=== PATIENT | male | born 1995 | race Hispanic/Latino ===

== ENCOUNTER 2016-09-22 08:39 | Emergency (ER) | payer OTHER ==
[2016-09-22 08:40] VITALS: BMI 33.2
[2016-09-22] MEDS ORDERED: Sodium Chloride 0.9% 1,000 ML IV STA ×2 (09:30→10:18)
[2016-09-22 10:01] LABS: ADD MANUAL DIFF? NO
[2016-09-22 10:07] LABS: VENOUS BLOOD GAS BASE EXCESS 0.8 mmol/L (0.0-2.0); VENOUS BLOOD PH 7.31 (7.32-7.43)
[2016-09-22 10:10] LABS: BASO # 0.03 K/mm3 (0.0-2.0); BASO % 0.4 % (0.0-3.0); EOS # 0.2 (0.0-0.7); EOS % 2.6 % (1.5-5.0); GRAN # 6.36 (1.4-6.5); GRAN % 79.6 % (50.0-68.0); LYMPH # 0.9 (1.2-3.4); LYMPH % 10.9 % (22.0-35.0); MEAN CELL VOLUME 87.1 fL (80.0-105.0); MEAN CORPUSCULAR HEMOGLOBIN 30.1 pg (25.0-35.0); MEAN CORPUSCULAR HGB CONC 34.6 g/dl (31.0-37.0); MEAN PLATELET VOLUME 9.1 fl (7.0-11.0); MONO # 0.5 (0.1-0.6); MONO % 6.5 % (1.0-6.0); PLATELET COUNT 197 10^3/uL (120.0-450.0); RED CELL DISTRIBUTION WIDTH 11.9 % (11.5-14.5)
[2016-09-22 10:17] LABS: ALB/GLOB RATIO 1.3 (1.1-1.8); ALKALINE PHOSPHATASE 62 U/L (38-133); ALT/SGPT 48 U/L (7-56); AMYLASE 100 U/L (35-125); AST/SGOT 71 U/L (15-59); BILIRUBIN,TOTAL 1.5 mg/dL (0.2-1.3); BLOOD UREA NITROGEN 15 mg/dL (7-21); CALCIUM 9.5 mg/dL (8.4-10.5); CARBON DIOXIDE 28 mmol/L (21-33); CHLORIDE 99 mmol/L (98-107); GFR AFRICAN-AMERICAN > 60; GLUCOSE,RANDOM 100 mg/dL (70-110); LIPASE 86 U/L (23-300); POTASSIUM 4.4 mmol/L (3.6-5.0); SODIUM 140 mmol/L (132-148); TOTAL PROTEIN 8.5 g/dL (5.8-8.3)
--- NOTE | 2016-09-22 10:18 | RAD ---
HISTORY: chest pain COMPARISON: No prior. FINDINGS: LUNGS: No active pulmonary disease. PLEURA: No significant pleural effusion identified, no pneumothorax apparent. CARDIOVASCULAR: Normal. OSSEOUS STRUCTURES: No significant abnormalities. VISUALIZED UPPER ABDOMEN: Normal. OTHER FINDINGS: None. IMPRESSION: No active disease.
[2016-09-22 10:20] LABS: INR 1.04 (0.93-1.08); PARTIAL THROMBOPLASTIN TIME 27.5 Seconds (23.7-30.8)
[2016-09-22 10:27] LABS: TROPONIN I 0.02 ng/mL
--- NOTE | 2016-09-22 11:43 | ED PDOC ---
Arrival/HPI - General Chief Complaint: Abdominal Pain Time Seen by Provider: 09/22/16 09:05 Historian: Patient - History of Present Illness Narrative History of Present Illness (Text): 09/22/16 09:25 A 21 year old male presents to the emergency department complaining of nausea, vomiting and diarrhea since last night around 2200. Patient reports multiple episodes of non bloody, non bilious vomiting and non bloody, water diarrhea. He notes his last episode was at 0500 this morning. Patient notes associated abdominal pain which radiates up to the chest. He denies any fever, shortness of breath, or other complaints at this time. PMD: Dr. Thornton Time/Duration: Other (12-18 hours) Symptom Onset: Sudden Symptom Course: Unchanged Quality: Other Activities at Onset: Rest Context: Home Past Medical History - Provider Review Nursing Documentation Reviewed: Yes - Past History Past History: Unable to Obtain - Infectious Disease Hx of Infectious Diseases: None - Tetanus Immunization Tetanus Immunization: Unknown - Psychiatric Hx Substance Use: No - Past Surgical History Past Surgical History: Unable to Obtain - Surgical History Hx Tonsillectomy: Yes Family/Social History - Physician Review Nursing Documentation Reviewed: Yes Family/Social History: Unknown Family HX Smoking Status: Current Some Days Smoker Hx Alcohol Use: Yes Frequency of alcohol use: Socially Hx Substance Use: No Allergies/Home Meds Allergies/Adverse Reactions: Allergies No Known Allergies Allergy (Verified 09/22/16 08:57) Home Medications: Home Meds Medication Instructions Recorded Confirmed No Known Home Med 09/22/16 09/22/16 Review of Systems - Review of Systems Constitutional: absent: Fevers Eyes: absent: Vision Changes ENT: absent: Rhinorrhea Respiratory: absent: SOB, Cough Cardiovascular: Chest Pain Gastrointestinal: Abdominal Pain, Diarrhea, Nausea, Vomiting Genitourinary Male: absent: Dysuria Musculoskeletal: absent: Back Pain Skin: absent: Rash Neurological: absent: Headache Endocrine: absent: Polyuria Psychiatric: absent: Depression Physical Exam - Physical Exam Narrative Physical Exam (Text): Head: Atraumatic. Normocephalic. Eyes: PERRL. EOMI. Conjunctivae are not pale. ENT: Mucous membranes are moist and intact. Oropharynx is clear and symmetric. Neck: Supple. Full ROM. No JVD. No lymphadenopathy. Cardiovascular: Regular rate. Regular rhythm. No murmurs, rubs, or gallops. Distal pulses are 2+ and symmetric. Pulmonary/Chest: No evidence of respiratory distress. Clear to auscultation bilaterally. No wheezing, rales or rhonchi. Abdominal: Focal tenderness with palpation to the periumbilical region and right lower quadrant with rebound. No guarding or rigidity. No organomegaly. Good bowel sounds. Back: No CVA tenderness. Extremities: No edema. No cyanosis. No clubbing. Full range of motion in all extremities. No calf tenderness. Skin: Skin is warm and dry. No petechiae. No purpura. Neurological: Alert, awake, and oriented to person, place, time, and situation. Normal speech. Psychiatric: Good eye contact. Normal interaction, affect, and behavior. Vital Signs Reviewed: Yes Vital Signs Temp Pulse Resp BP Pulse Ox 09/22/16 18:09 97.9 F 61 18 123/63 100 09/22/16 16:22 61 14 117/57 L 98 09/22/16 13:36 62 18 131/70 98 09/22/16 08:53 98.3 F 88 18 160/85 H 98 Temperature: Afebrile Blood Pressure: Hypertensive Pulse: Regular Respiratory Rate: Normal Appearance: Positive for: Well-Appearing, Non-Toxic, Comfortable Pain Distress: None Mental Status: Positive for: Alert and Oriented X 3 Medical Decision Making ED Course and Treatment: 09/22/16 09:25 Impression: A 21 year old male with abdominal pain, nausea, vomiting and diarrhea. On examination patient is tenderness with palpation to the periumbilical and right lower quadrant with rebound. Differential Diagnosis include but are not limited to: gastritis vs. appendicitis vs. gastroenteritis. Plan: Will obtain EKG and chest x-ray and lab work to rule out cardiac cause. Will give Pepcid, zofran and IV Fluids for discomfort. Will obtain a Abdomen/ Pelvis CT with contrast to rule out appendicitis. Limitations of CT imaging and labs reviewed with patient and father. - Lab Interpretations I have reviewed the lab results: Yes - Medication Orders Current Medication Orders: Sodium Chloride (Sodium Chloride 0.9%) 1,000 mls @ 100 mls/hr IV .Q10H DERECK Last Admin: 09/22/16 13:33 Dose: 100 MLS/HR eMAR Start Stop Document 09/22/16 13:33 SRE (Rec: 09/22/16 13:33 SRE [id number]) Intravenous Solution Start Date 09/22/16 Start Time 13:25 Sodium Chloride (Sodium Chloride 0.9%) 1,000 mls @ 125 mls/hr IV .Q8H DERECK Last Admin: 09/22/16 17:24 Dose: 125 MLS/HR eMAR Start Stop Document 09/22/16 17:24 SRE (Rec: 09/22/16 17:25 SRE [id number]) Intravenous Solution Start Date 09/22/16 Start Time 17:24 End Date 09/23/16 End time 01:00 Total Infusion Time 456 Ondansetron HCl (Zofran Inj) 4 mg IVP Q4H PRN PRN Reason: Nausea/Vomiting Tramadol HCl (Ultram) 50 mg PO TID DERECK Discontinued Medications Famotidine (Pepcid) 20 mg IVP STAT STA Stop: 09/22/16 09:31 Last Admin: 09/22/16 10:26 Dose: 20 MG IVP Administration Document 09/22/16 10:26 SRE (Rec: 09/22/16 10:26 SRE [id number]) Charges for Administration # of IVP Administrations 1 Sodium Chloride (Sodium Chloride 0.9%) 1,000 mls @ 1,000 mls/hr IV .Q1H STA Stop: 09/22/16 10:29 Last Admin: 09/22/16 10:20 Dose: 1,000 MLS/HR eMAR Start Stop Document 09/22/16 10:20 SRE (Rec: 09/22/16 10:26 SRE [id number]) Intravenous Solution Start Date 09/22/16 Start Time 10:20 End Date 09/22/16 End time 11:20 Total Infusion Time 60 Sodium Chloride (Sodium Chloride 0.9%) 1,000 mls @ 1,000 mls/hr IV .Q1H STA Stop: 09/22/16 11:17 Last Admin: 09/22/16 10:54 Dose: 1,000 MLS/HR eMAR Start Stop Document 09/22/16 10:54 SRE (Rec: 09/22/16 10:55 SRE [id number]) Intravenous Solution Start Date 09/22/16 Start Time 10:55 End Date 09/22/16 End time 12:00 Total Infusion Time 65 Iohexol (Omnipaque 350 150 Ml) Confirm Administered Dose 150 ml .ROUTE .STK-MED ONE Stop: 09/22/16 10:25 Ondansetron HCl (Zofran Inj) 4 mg IVP ONCE ONE Stop: 09/22/16 09:31 Last Admin: 09/22/16 10:26 Dose: 4 MG IVP Administration Document 09/22/16 10:26 SRE (Rec: 09/22/16 10:26 SRE [id number]) Charges for Administration # of IVP Administrations 1 ED OBSERVATION Discharge: Yes Date of observation admission: 09/22/16 Time of observation admission: 09:25 - Observation admission statement Patient is being placed in observation because:: History of nausea and vomiting and diarrhea associated with abdominal pain. - Goals of Observation Goals of observation are:: IV fluids, serial exams, possible ct abdomen is persistent RLQ pain - Progress Note Progress Note: IV was established and fluids ordered. Labs reviewed in depth with the patient. I discussed with the patient the limitation in lab work in diagnosing appendicitis. 09/22/16 09:32 On reevaluation after fluids patient with persistent right lower quadrant abdominal pain. CT with contrast recommend. Risk of IV Contrast and indication of CT reviewed with the patient is depth. Patient is requesting, we call his PMD before obtaining the CT. I have discussed the history and examination with the patient PMD (Dr. Bhavik Thornton), who states he will communicate with the patient's father about indication for CT as well. Dr. Thornton is agreeable to the plan. 09/22/16 10:20 Chest X-ray: Creator : Levi Louis MD COMPARISON: No prior. FINDINGS: LUNGS: No active pulmonary disease. PLEURA: No significant pleural effusion identified, no pneumothorax apparent. CARDIOVASCULAR: Normal. OSSEOUS STRUCTURES: No significant abnormalities. VISUALIZED UPPER ABDOMEN: Normal. OTHER FINDINGS: None. IMPRESSION: No active disease. 09/22/16 12:40 Abdomen/Pelvis CT: Creator : Nate Santoyo MD COMPARISON: None. FINDINGS: LOWER THORAX: Unremarkable. LIVER: Unremarkable. No gross lesion or ductal dilatation. GALLBLADDER AND BILE DUCTS: Unremarkable. PANCREAS: Unremarkable. No gross lesion or ductal dilatation. SPLEEN: Unremarkable. ADRENALS: Unremarkable. No mass. KIDNEYS AND URETERS: Unremarkable. No hydronephrosis. No solid mass. VASCULATURE: Unremarkable. No aortic aneurysm. BOWEL: Unremarkable. No obstruction. No gross mural thickening. APPENDIX: Normal appendix. PERITONEUM: Unremarkable. No free fluid. No free air. LYMPH NODES: Unremarkable. No enlarged lymph nodes. BLADDER: Unremarkable. REPRODUCTIVE: Unremarkable. BONES: No acute fracture. OTHER FINDINGS: None. IMPRESSION: Unremarkable contrast enhanced CT of the abdomen and pelvis. Patient on reassessment has improved pain. I have discussed with him in length about abnormal lab tests including CPK in laymen's terms. IV fluids continued. Repeat CPK found to be persistently elevated, although patient denies any chest pain or shortness or breath. On musculoskeletal exam there is no focal muscle pain or erythema or edema. His nausea and vomiting and diarrhea have resolved. He is tolerating po. Patient's repeat CPK elevation was discussed with the patient and Dr. Tra Thornton. I have recommended to patient that he be admitted for evaluation of elevated CPK that is increasing, as well as differential diagnosis of this. He denies any chest pain, denies any excessive exertion or prolonged immoblization. Denies calf pain or swelling. He denies strenuous activity. Denies protein supplements or "muscle mass" supplements. He is urinating without difficulty. Patient and PMD initially agreeable to admission. I updated his father Agapito Downey, who is agreeable to plan. Subsequently patient and family communicated to me and PMD that he wishes to be discharged. Risks were discussed with patient in laymen's terms. He is comfortable, tolerating po, comfortable, and will be discharged as follow-up arranged with Dr. Thornton tomorrow morning. Risks of discharge and elevated CPK reviewed with patient and father, they express understanding. 09/22/16 18:10 - Scribe Statement The provider has reviewed the documentation as recorded by the Romeroibe Robbin Norman Provider Scribe Attestation: All medical record entries made by the Scribe were at my direction and personally dictated by me. I have reviewed the chart and agree that the record accurately reflects my personal performance of the history, physical exam, medical decision making, and the department course for this patient. I have also personally directed, reviewed, and agree with the discharge instructions and disposition. Disposition/Present on Arrival - Present on Arrival Any Indicators Present on Arrival: No History of DVT/PE: No History of Uncontrolled Diabetes: No Urinary Catheter: No History of Decub. Ulcer: No History Surgical Site Infection Following: None - Disposition Have Diagnosis and Disposition been Completed?: Yes Diagnosis: Gastroenteritis, Elevated creatine kinase level Disposition: HOME/ ROUTINE Disposition Time: 18:22 Patient Plan: Discharge Condition: GOOD
[2016-09-22 12:07] LABS: URINE BILIRUBIN NEGATIVE (NEGATIVE); URINE BLOOD NEGATIVE (NEGATIVE); URINE GLUCOSE (UA) NEGATIVE (NEGATIVE); URINE KETONE NEGATIVE (NEGATIVE); URINE LEUKOCYTE ESTERASE NEGATIVE Leu/uL (NEGATIVE); URINE PROTEIN NEGATIVE mg/dL (<30 mg/dL); URINE UROBILINOGEN 0.2 E.U./dL (<1 E.U./dL)
[2016-09-22 12:08] LABS: URINE APPEARANCE CLEAR (CLEAR); URINE COLOR YELLOW (YELLOW)
--- NOTE | 2016-09-22 12:37 | CT ---
PROCEDURE: CT Abdomen and Pelvis with contrast HISTORY: rlq abdominal pain COMPARISON: None. TECHNIQUE: Contrast dose: 150 cc of Omni 350 Radiation dose: Total exam DLP = 1007 mGy-cm. This CT exam was performed using one or more of the following dose reduction techniques: Automated exposure control, adjustment of the mA and/or kV according to patient size, and/or use of iterative reconstruction technique. FINDINGS: LOWER THORAX: Unremarkable. LIVER: Unremarkable. No gross lesion or ductal dilatation. GALLBLADDER AND BILE DUCTS: Unremarkable. PANCREAS: Unremarkable. No gross lesion or ductal dilatation. SPLEEN: Unremarkable. ADRENALS: Unremarkable. No mass. KIDNEYS AND URETERS: Unremarkable. No hydronephrosis. No solid mass. VASCULATURE: Unremarkable. No aortic aneurysm. BOWEL: Unremarkable. No obstruction. No gross mural thickening. APPENDIX: Normal appendix. PERITONEUM: Unremarkable. No free fluid. No free air. LYMPH NODES: Unremarkable. No enlarged lymph nodes. BLADDER: Unremarkable. REPRODUCTIVE: Unremarkable. BONES: No acute fracture. OTHER FINDINGS: None. IMPRESSION: Unremarkable contrast enhanced CT of the abdomen and pelvis.
[2016-09-22] MEDS ORDERED: Sodium Chloride 0.9% 1,000 ML IV SCH ×2 (13:30→17:00)
[2016-09-22 16:22] VITALS: PULSE 61
[2016-09-22 16:41] LABS: TROPONIN I < 0.01 ng/mL
[2016-09-22 18:12] VITALS: BP 123/63; RESP 18; TEMP 97.9; O2SAT 100
--- NOTE | 2016-09-22 18:26 | CARD ---
APPROVED REPORT EKG Measurement Heart [id number] <Conclusion> Normal sinus rhythm Normal ECG
== END 2016-09-22 18:46 | disposition home or self-care (01) ==
LOC: ED 08:39 → UNDOADMOB 09:25 → EROBSV 09:25 → ERH 17:29
DX: K52.9 Noninfective gastroenteritis and colitis, unspecified (principal); R74.8 Abnormal levels of other serum enzymes; F17.210 Nicotine dependence, cigarettes, uncomplicated
CPT/HCPCS: 71010; 74177; 80053; 81003; 82150; 82550; 82553; 82803; 83615; 83690; 84484; 85025; 85610; 85651; 85730; 86140; 93005; 96361; 96374; 96375; 99284; G0480; J2405; J7040; Q9967

== ENCOUNTER 2018-08-22 15:22 | Emergency (ER) | payer SELFPAY ==
[2018-08-22 15:25] VITALS: BMI 30.5
[2018-08-22] MEDS ORDERED: Lidocaine 1% Inj (20ml) ONE (15:40)
--- NOTE | 2018-08-22 15:51 | ED PDOC ---
Arrival/HPI - General Chief Complaint: Abnormal Skin Integrity Time Seen by Provider: 08/22/18 15:28 Historian: Patient, Parent - History of Present Illness Time/Duration: Prior to Arrival Symptom Onset: Sudden Symptom Course: Unchanged Severity Level: Mild Associated Symptoms (Text): 08/22/18 15:50 Patient lacerated his dominant left dorsal ring finger at the middle phalanx just prior to arrival with a kitchen knife at home. Tetanus immunization was 2 years ago. No tendon injury. Past Medical History - Past History Past History: Unable to Obtain - Infectious Disease Hx of Infectious Diseases: None - Tetanus Immunization Tetanus Immunization: Unknown - Psychiatric Hx Substance Use: No - Past Surgical History Past Surgical History: Unable to Obtain - Surgical History Hx Tonsillectomy: Yes - Anesthesia Hx Anesthesia: Yes Hx Anesthesia Reactions: No Hx Malignant Hyperthermia: No Family/Social History - Physician Review Nursing Documentation Reviewed: Yes Family/Social History: Unknown Family HX Smoking Status: Never Smoked Hx Alcohol Use: Yes Frequency of alcohol use: Socially Hx Substance Use: No Allergies/Home Meds Allergies/Adverse Reactions: Allergies No Known Allergies Allergy (Verified 08/22/18 15:25) Home Medications: Home Meds Medication Instructions Recorded Confirmed No Known Home Med 09/22/16 08/22/18 Review of Systems - Physician Review All systems were reviewed & negative as marked: Yes Physical Exam Vital Signs Pulse Resp BP Pulse Ox 08/22/18 15:28 108 H 20 144/77 100 Temperature: Afebrile Blood Pressure: Normal Pulse: Regular Respiratory Rate: Normal Appearance: Positive for: Well-Appearing, Non-Toxic, Comfortable Pain Distress: None Mental Status: Positive for: Alert and Oriented X 3 - Systems Exam Skin: Present: Warm, Dry, Normal Color, Laceration (3 cm dorsal left ring finger laceration. No tendon injury. Good two-point discrimination.). No: Rashes Medical Decision Making ED Course and Treatment: 08/22/18 16:10 Laceration repair. The wound was prepped and draped in the usual sterile fashion using Betadine. Normal saline solution irrigation. 1% plain digital block anesthesia with lidocaine was given. The wound was closed with 5-0 nylon sutures. Sterile dressing applied. Patient tolerated procedure well. Disposition/Present on Arrival - Present on Arrival Any Indicators Present on Arrival: No History of DVT/PE: No History of Uncontrolled Diabetes: No Urinary Catheter: No History of Decub. Ulcer: No History Surgical Site Infection Following: None - Disposition Have Diagnosis and Disposition been Completed?: Yes Diagnosis: Laceration of left ring finger Disposition: HOME/ ROUTINE Disposition Time: 16:11 Patient Plan: Discharge Condition: IMPROVED Discharge Instructions (ExitCare): Laceration Repair With Stitches (DC), Wound Care (DC) Additional Instructions: Dry for 2 days. Wound check in 2 days. Suture removal in 10 days. Follow-up with PMD. Follow-up in ER as needed. Forms: [facility] (Lithuanian), SCHOOL NOTE
[2018-08-22 16:21] VITALS: BP 132/78; PULSE 95; RESP 18; TEMP 98.2; O2SAT 99
== END 2018-08-22 16:27 | disposition home or self-care (01) ==
LOC: ED 15:22
DX: S61.215A Laceration without foreign body of left ring finger without damage to nail, initial encounter (principal); W26.0XXA Contact with knife, initial encounter; Y92.009 Unspecified place in unspecified non-institutional (private) residence as the place of occurrence of the external cause